=== PATIENT | female | born 1940 | race Caucasian/White ===

== ENCOUNTER 2018-04-23 15:20 | Inpatient (IN) | payer MEDICARE, MEDICAID ==
--- NOTE | 2018-04-23 15:48 | ED Physician Chart ---
ED Chief Complaint/HPI - Patient Information Date Seen:: 04/23/18 Time Seen:: 15:20 Chief Complaint:: Rectal Pain History of Present Illness:: onset x 2 days of rectal pain and myalgias; no report of trauma, H/As, S/T, neck pain, C/P, SOB, Abd. Pain, A/N/V/D/C, fever, chills, bleeding, or urinary s /s Allergies:: Allergies Allergy/AdvReac Type Severity Reaction Status Date / Time duloxetine HCl Allergy Verified 01/24/16 14:50 [From Cymbalta] Penicillins Allergy Verified 01/24/16 14:50 Vitals:: Vital Signs - 8 hr 04/23/18 15:23 Temp 98.8 F HR 78 RR 18 BP 144/77 O2 Sat % 94 Historian:: Patient, Family Member Review:: Nurse's Note Reviewed ED Review of Systems - Review of Systems General/Constitutional: No fever, No chills, No weight loss, No weakness, No diaphoresis, No edema, No loss of appetite Skin: No skin lesions, No rash, No bruising Head: No headache, No light-headedness Eyes: No loss of vision, No pain, No diplopia ENT: No earache, No nasal drainage, No sore throat, No tinnitus Neck: No neck pain, No swelling, No thyromegaly, No stiffness, No mass noted Cardio Vascular: No chest pain, No palpitations, No PND, No orthopnea, No edema Pulmonary: No SOB, No cough, No sputum, No wheezing GI: No nausea, No vomiting, No diarrhea, No pain, No melena, No hematochezia, No constipation, No hematemesis G/U: No dysuria, No frequency, No hematuria, No nacturia Protection Engineer: No vaginal discharge, No abnormal vaginal bleed, No contraction Musculoskeletal: No bone or joint pain, No back pain, No muscle pain Endocrine: No polyuria, No polydipsia Psychiatric: No prior psych history, No depression, No anxiety, No suicidal ideation, No homicidal ideation, No auditory hallucination, No visual hallucination Hematopoietic: No bruising, No lymphadenopathy Allergic/Immuno: No urticaria, No angioedema Neurological: No syncope, No focal symptoms, No weakness, No paresthesia, No headache, Seizure, No dizziness, Confusion, No vertigo ED Past Medical History - Past Medical History Obtainable: Yes Past Medical History: HTN, DM, CVA/TIA, Dyslipidemia, PUD/GERD, Seizures, Dementia Family History: Diabetes Melitus, HTN Social History: Non Smoker, No Alcohol, No Drug Use, , Care Facility Surgical History: Hysterectomy, other (Left BKA) Psychiatricy History: Schizophrenia, Bipolar, Dementia Medication: Reviewed Family Medical History - Family Member Mother History Unknown: Yes ED Physical Exam - Physical Examination General/Constitutional: Awake, Well-developed, well-nourished, Alert, No distress, GCS 15, Non-toxic appearing, Ambulatory Head: Atraumatic Eyes: Lids, conjuctiva normal, PERRL, EOMI Skin: Nl inspection, No rash, No skin lesions, No ecchymosis, Well hydrated, No lymphadenopathy ENMT: External ears, nose nl, TM canals nl, Nasal exam nl, Lips, teeth, gums nl , Oropharynx nl, Tonsils nl Neck: Nontender, Full ROM w/o pain, No JVD, No nuchal rigidity, No bruit, No mass, No stridor Respiratory: Nl effort/Exclusion, Clear to Auscultation, No Wheeze/Rhonchi/Rales Cardio Vascular: RRR, No murmur, gallop, rubs, NL S1 S2, Carotid/Femoral/Distal pulses equal bilaterally GI: No tenderness/rebounding/guarding, No organomegaly, No hernia, Normal BS's, Nondistended, No mass/bruits, No McBurney tenderness Other GI comments:: no pulsatile masses; + Hemorrhoids : No CVA tenderness Extremities: No tenderness or effusion, Full ROM, normal strength in all extremities, No edema, Normal digits & nails Neuro/Psych: Alert/oriented, DTR's symmetric, Normal sensory exam, Normal motor strength, Judgement/insight normal, Mood normal, Normal gait, No focal deficits Misc: Normal back, No paraspinal tenderness ED Labs/Radiology/EKG Results - Lab Results Comments:: Reviewed - EKG Interpretations EKG Time:: 17:09 Rate & Rhythm: 80; NSR Comments:: non-specific st-t changes ED Septic Shock - . Is Septic Shock (SBP<90, OR Lactate>4 mmol\L) present?: No - <6hrs of presentation: Vital Signs: Vital Signs - 8 hr /07/29 15:23 Temp 98.8 F HR 78 RR 18 BP 144/77 O2 Sat % 94 ED Reassessment (Disposition) - Reassessment Reassessment Condition:: Improved - Diagnosis Diagnosis:: Hemorrhoids; Rectal Pain; Hyperlipidemia; Intractable Pain - Aftercare/Follow up Instructions Aftercare/Follow-Up Instructions:: Counseled pt regarding lab results/diagnosis & need follow up, Counseled pt & family regarding lab results/diagnosis & need follow up - Patient Disposition Discharge/Transfer:: Acute Care w/in this hosp Accepting Physician:: Dr. Chawla Time Called:: 1700 Time Responded:: 17:00 Admitted to:: Med/Surg Spoke to:: Dr. Chawla Admitting Medical Physician:: Dr. Chawla Condition at Disposition:: Stable, Improved
[2018-04-23] MEDS ORDERED: Sodium Chloride 0.9% 1,000 ML IV ONE (15:49)
[2018-04-23 16:21] LABS: HEMATOCRIT 36.7 % (41.0-60); HEMOGLOBIN 12.2 gm/dL (12-16); MEAN CELL VOLUME 84.5 fl (81-100); MEAN CORPUSCULAR HEMOGLOBIN 28.1 pg (27.0-31.0); MEAN CORPUSCULAR HGB CONC 33.3 pg (28.0-36.0); RED BLOOD COUNT 4.34 Mil/cmm (3.80-5.20); RED CELL DISTRIBUTION WIDTH 13.2 % (11.5-20.0); WHITE BLOOD COUNT 5.8 Th/cmm (4.8-10.8)
[2018-04-23 16:22] LABS: % BASOPHILS 0.7 % (0.0-2.0); % EOSINOPHILS 3.1 % (0.0-5.0); % MONOCYTES 6.2 % (2.0-10.0); EOSINOPHILE ABSOLUTE 0.2 Th/cmm (0.1-0.4); LYMPHOCYTE ABSOLUTE 1.9 Th/cmm (1.5-3.0); MEAN PLATELET VOLUME 8.4 fl; MONOCYTE ABSOLUTE 0.4 Th/cmm (0.3-1.0); NEUTROPHILE ABSOLUTE 3.3 Th/cmm (1.8-8.0); PLATELET COUNT 208 Th/cmm (150-400)
[2018-04-23 16:34] LABS: INR 0.95 (0.5-1.4); PROTHROMBIN TIME (TEST) 9.9 SECONDS (9.5-11.5)
[2018-04-23 16:37] LABS: INR 0.95 (0.5-1.4); PROTHROMBIN TIME (TEST) 9.9 SECONDS (9.5-11.5)
[2018-04-23 16:59] LABS: DDIMER QUANT 196 ng/mL (100-400)
[2018-04-23 17:03] LABS: ALB/GLOB RATIO 1.4 (1.0-1.8); ALBUMIN 3.6 gm/dL (3.7-5.3); ALKALINE PHOSPHATASE 54 U/L (34-104); ANION GAP 11.3 (7.0-16.0); BILIRUBIN,TOTAL 0.4 mg/dL (0.3-1.0); BUN - UREA NITROGEN 12 mg/dL (7-25); CALCIUM SERUM 9.3 mg/dL (8.6-10.3); CARBON DIOXIDE 26.8 mEq/L (21.0-31.0); CHLORIDE 104 mEq/L (98-107); CHOLESTEROL 122 mg/dL (<200); CREATININE - SERUM 0.5 mg/dL (0.6-1.2); CREATININE KINASE 19 U/L (30-223); GLUCOSE 112 mg/dL (70-105); HDL -HIGH DENSITY LIPOPROTEIN 32 mg/dL (23-92); POTASSIUM SERUM 4.1 mEq/L (3.5-5.1); SGOT 10 U/L (13-39); SGPT/ALT 9 U/L (7-52); SODIUM SERUM 138 mEq/L (136-145); TOTAL PROTEIN,SERUM 6.1 gm/dL (6.0-8.3); TRIGLYCERIDES 247 mg/dL (<150)
[2018-04-23 17:04] LABS: AMYLASE SERUM 35 U/L (29-103); LIPASE 26 U/L (11-82)
[2018-04-23 17:27] LABS: URINE SOURCE CLEAN C
[2018-04-23 17:31] LABS: URINE BILIRUBIN NEGATIVE (NEGATIVE); URINE BLOOD NEGATIVE (NEGATIVE); URINE GLUCOSE (UA) NEGATIVE (NEGATIVE); URINE KETONE NEGATIVE (NEGATIVE); URINE LEUKOCYTE ESTERASE NEGATIVE (NEGATIVE); URINE NITRATE NEGATIVE (NEGATIVE); URINE PROTEIN NEGATIVE (NEGATIVE); URINE UROBILINOGEN 0.2 E.U./dL (0.2 - 1.0)
[2018-04-23 17:34] LABS: URINE CLARITY CLEAR (CLEAR); URINE COLOR YELLOW; URINE MICROSCOPIC INDICATED? YES
[2018-04-23 17:36] LABS: URINE BACTERIA FEW /hpf (NONE SEEN); URINE EPITHELIAL CELLS FEW /lpf (FEW); URINE RBC 0-2 /hpf (0-5)
[2018-04-23] MEDS ORDERED: Morphine Sulfate 2 mg/mL 1mL Syr IV STA (17:58)
[2018-04-23] MEDS ORDERED: Morphine Sulfate 2 mg/mL 1mL Syr ONE (19:52)
[2018-04-23] MEDS ORDERED: Ipratropium Neb 0.5 mg/2.5 mL UD HHN PRN (22:09)
[2018-04-23] MEDS ORDERED: Albuterol Nebulizer 2.5mg/3mL HHN PRN (22:09)
[2018-04-23] MEDS: D5-0.45NS 1,000 ML IV SCH (22:36)
[2018-04-24] MEDS: Hydrocodone/APAP 5mg/325mg Tab PO PRN ×2 (00:45→21:21)
[2018-04-24] MEDS ORDERED: Pneumococcal Vaccine 0.5 mL Vial IM ONE (01:53)
[2018-04-24] MEDS: Morphine Sulfate 2 mg/mL 1mL Syr IVP PRN ×2 (03:17→10:11)
[2018-04-24] MEDS ORDERED: Diatrizoate Meglumine/Diatri 30 mL Sol PO ONE (08:06)
[2018-04-24] MEDS ORDERED: IOHEXOL 300mgI/mL 100 ML VIAL IVP ONE (08:06)
[2018-04-24] MEDS ORDERED: Carbamide Peroxide Otic Soln 15 mL Bottle EACH EAR SCH (09:00)
[2018-04-24] MEDS: Aspirin 81mg Chewable Tab PO SCH (09:16)
[2018-04-24] MEDS: Calcium Carb/Vit D 500 mg/200 U Tab PO SCH ×3 (09:16→21:17)
[2018-04-24] MEDS: NIFEdipine 30 mg ER Tab PO SCH (09:17)
[2018-04-24] MEDS: POLYETHYLENE GLYCOL 3350 17 GM PACK PO SCH (09:22)
[2018-04-24] MEDS: Multivitamin Tab PO SCH (09:22)
--- NOTE | 2018-04-24 09:51 | Consultation ---
DATE OF CONSULTATION: 04/24/2018 INPATIENT GASTROINTESTINAL CONSULTATION REFERRING PHYSICIAN: Dr. Chawla. REASON FOR CONSULTATION: Rectal pain. HISTORY OF PRESENT ILLNESS: This is a 77-year-old female complaining of rectal pain for 2 days. The patient denies having any frontal abdominal pain. She feels constipated. No diarrhea, no melena, hematochezia. No nausea or vomiting. PAST MEDICAL HISTORY: Hypertension, diabetes, stroke, hyperlipidemia, peptic ulcer disease, seizure disorder, and dementia. PAST SURGICAL HISTORY: Hysterectomy and left BKA. FAMILY HISTORY: Noncontributory. SOCIAL HISTORY: No tobacco, alcohol, or IV drug usage. ALLERGIES: DULOXETINE and PENICILLIN. CURRENT MEDICATIONS: Tylenol, [place], Fosamax, aspirin, Lipitor, [place], Coreg, Celexa, Plavix, Colace, Aricept, Neurontin, hydrochlorothiazide, Anusol, hydrocortisone, lactulose, Keppra, Namenda, morphine, Procardia, Nitrostat, Zofran, Protonix, and MiraLax. REVIEW OF SYSTEMS: Ten point review of systems obtained, pertinent positive was the rectal pain. All other systems are negative. PHYSICAL EXAMINATION: VITAL SIGNS: Temperature 98.6, breathing 19, pulse of 80, blood pressure 127/45, and satting 94%. GENERAL: In no apparent distress. EYES: Anicteric. Normal conjunctivae. HEENT: Normocephalic, atraumatic. Moist mucous membranes. NECK: Soft, supple. CHEST: Clear. No effort. CARDIOVASCULAR: Regular rate and rhythm. ABDOMEN: Soft, nontender, nondistended. SKIN: Warm and dry. EXTREMITIES: No cyanosis. RECTAL: Revealed a tender internal hemorrhoids. SKIN: Warm and dry. EXTREMITIES: No cyanosis. PSYCHOLOGICAL: Awake. LABORATORY DATA: Show white count 5.8, hemoglobin 12.2, and platelets of 208. INR 0.94. LFTs within normal limits. IMPRESSION: A 77-year-old female with rectal pain, likely from hemorrhoids and currently has Anusol and hydrocortisone on board, may need surgical evaluation. Colonoscopy is also to be considered. However, the patient is on Plavix and we will have to hold this for 7 days. Imaging studies of the lower region of the pelvis could also be helpful. PLAN: 1. CT pelvis. 2. Continue with laxatives, Anusol, hydrocortisone. 3. Consider Amitiza for opioid induced constipation. 4. Surgical evaluation for cystic hemorrhoids. 5. Consider colonoscopy, but the patient to be off Plavix for 7 days. Thank you for allowing me to participate. Please call me if any questions. JOB# [id number]
--- NOTE | 2018-04-24 13:04 | Diagnostic Imaging Report ---
CT scan abdomen and pelvis with and without intravenous contrast HISTORY: Rectal pain Total DLP equals 1626 CTDI equals 31.0 Axial sections were obtained from the xiphoid process down to the pubic symphysis before and after administration of intravenous contrast. Exam somewhat compromised due to patient motion. The liver exhibits a homogeneous parenchyma. No focal lesions. The spleen appears normal. No abnormality seen in the region of the pancreas. No significant focal renal lesions. No hydronephrosis. Atherosclerotic calcination noted throughout the aorta and iliac artery regions. The exam of the pelvis demonstrates preservation of normal fat planes. No abnormal soft tissue masses or abnormal fluid collections. Colonic diverticula are noted particularly in the sigmoid region. No abnormality seen within the region of the rectum. IMPRESSION: 1. No acute abnormalities 2. Atherosclerotic vascular changes 3. Diverticulosis
--- NOTE | 2018-04-24 14:59 | History & Physical ---
ADMIT DATE: 04/24/2018 PATIENT IDENTIFICATION: A 77-year-old female. CHIEF COMPLAINT: Abdominal pain and perirectal pain. HISTORY OF PRESENT ILLNESS: This 77-year-old resident of senior living, has a significant medical history, which includes cerebrovascular accident with left-sided weakness, hypertension, hyperlipidemia, seizure disorder, obesity, has been followed by myself at a senior living, brought in to the Emergency Room after the patient was complaining about significant amount of pain in the lower abdominal area as well as the perirectal area. The patient was evaluated in the Emergency Room and has been admitted to the hospital for further treatment. PAST MEDICAL HISTORY: Remarkable for: 1. Hypertension. 2. Hyperlipidemia. 3. Cerebrovascular accident with left-sided weakness. 4. Degenerative joint disease. 5. Seizure disorder. 6. Left below knee amputation. MEDICATIONS AT HOME: The patient is taking multiple medications, which include Tylenol, Fosamax, vitamin C, aspirin, atorvastatin, carvedilol, vitamin D, Plavix, Celexa, Colace, gabapentin, Aricept, hydrochlorothiazide, hydrocortisone cream, Imdur, lactulose, Keppra, Namenda, nifedipine, and nitroglycerin. ALLERGIES: The patient is allergic to DULOXETINE AND PENICILLIN. SOCIAL HISTORY: The patient is a resident of senior living. No history of smoking cigarette, alcohol, or drug use. FAMILY MEDICAL HISTORY: Unremarkable. REVIEW OF SYSTEMS: The patient currently denies any headache, blurred vision. Denies any chest pain, shortness of breath. Denies any fever or chills. The patient complained of constipation earlier, but it is better after getting anti-constipation medication. The patient denies any seizure or syncopal episode. Denies any suicidal or homicidal ideation. PHYSICAL EXAMINATION: GENERAL: Alert, awake, lying in the bed. VITAL SIGNS: Temperature 98.2, pulse 75, respiratory rate 18, blood pressure 130/52. HEENT: Normocephalic, atraumatic. Extraocular muscles are intact. Tongue more pink and coated. Poor dentition noted. NECK: Supple, no JVD, no lymphadenopathy, thyromegaly. HEART: Both heart sounds are regular. CHEST AND LUNGS: Equal in expansion, no expiratory wheezing. ABDOMEN: Soft. No guarding or rigidity. Bowel sounds present. No palpable mass. Diffuse tenderness noted of the lower part of the abdomen. EXTREMITIES: Left below knee amputation noted. RECTAL: Perirectal examination remarkable for hemorrhoids noted. NEUROLOGIC: Remarkable for left-sided weakness noted. AVAILABLE DIAGNOSTIC DATA: White count of 5.8, hemoglobin 12.2, platelet count of 208. PT, PTT are normal. BUN and creatinine is 12 and 0.5, glucose of 112. B-type natriuretic 114, CK of 19, triglyceride 247, LDL of 66. Urinalysis unremarkable. CT scan of the abdomen and pelvis is done, which reveals the patient has atherosclerotic vascular changes with diverticulosis. CLINICAL IMPRESSION: 1. Diffuse abdominal pain, etiology needs to determine. In the presence of atherosclerotic changes and diverticulosis, intestinal ischemia and diverticulosis from early diverticulitis is always a possibility. 2. Perirectal pain, most likely secondary to hemorrhoidal in etiology. 3. Fecal impaction. 4. Cerebrovascular accident with left-sided weakness. 5. Seizure disorder. 6. Hypertension. 7. Hyperlipidemia. 8. Peripheral vascular disease. 9. Status post left below knee amputation. 10. Psychotic disorder. 11. Dementia. PLAN: The patient is admitted at this time to Med/Surg floor. The patient will have GI consultation. I will also put the patient on appropriate medication, anti-constipation medicine will be given. Pain management provided. Empirical IV antibiotic, general nursing care, and follow gastroenterology recommendations. The patient's care plan has been reviewed and discussed with RN as well. JOB# [id number]
[2018-04-24] MEDS: Atorvastatin Calcium 10 MG TAB PO SCH (21:16)
[2018-04-24] MEDS: Lactulose 10 Gm/15 mL 30mL UDC PO SCH (21:24)
[2018-04-25] MEDS: Hydrocodone/APAP 5mg/325mg Tab PO PRN ×2 (05:27→22:10)
--- NOTE | 2018-04-25 08:39 | GI Progress Note ---
Subjective - Review of Systems Subjective: HAD LARGE BM Objective - Results Result Diagrams: 04/23/18 16:10 04/23/18 16:10 Recent Labs: Laboratory Last Values WBC 5.8 Th/cmm (4.8-10.8) 04/23/18 16:10 RBC 4.34 Mil/cmm (3.80-5.20) 04/23/18 16:10 Hgb 12.2 gm/dL (12-16) 04/23/18 16:10 Hct 36.7 % (41.0-60) L 04/23/18 16:10 MCV 84.5 fl (81-100) 04/23/18 16:10 MCH 28.1 pg (27.0-31.0) 04/23/18 16:10 MCHC Differential 33.3 pg (28.0-36.0) 04/23/18 16:10 RDW 13.2 % (11.5-20.0) 04/23/18 16:10 Plt Count 208 Th/cmm (150-400) 04/23/18 16:10 MPV 8.4 fl 04/23/18 16:10 Neutrophils % 58.0 % (40.0-80.0) 04/23/18 16:10 Lymphocytes % 32.0 % (20.0-50.0) 04/23/18 16:10 Monocytes % 6.2 % (2.0-10.0) 04/23/18 16:10 Eosinophils % 3.1 % (0.0-5.0) 04/23/18 16:10 Basophils % 0.7 % (0.0-2.0) 04/23/18 16:10 PT 9.9 SECONDS (9.5-11.5) 04/23/18 16:10 INR 0.95 (0.5-1.4) 04/23/18 16:10 PTT (Actin FS) 24.0 SECONDS (26.0-38.0) L 04/23/18 16:10 D-Dimer 196 ng/mL (100-400) 04/23/18 16:10 Sodium 138 mEq/L (136-145) 04/23/18 16:10 Potassium 4.1 mEq/L (3.5-5.1) 04/23/18 16:10 Chloride 104 mEq/L (98-107) 04/23/18 16:10 Carbon Dioxide 26.8 mEq/L (21.0-31.0) 04/23/18 16:10 Anion Gap 11.3 (7.0-16.0) 04/23/18 16:10 BUN 12 mg/dL (7-25) 04/23/18 16:10 Creatinine 0.5 mg/dL (0.6-1.2) L 04/23/18 16:10 Est GFR ( Amer) TNP 04/23/18 16:10 Est GFR (Non-Af Amer) TNP 04/23/18 16:10 BUN/Creatinine Ratio 24.0 04/23/18 16:10 Glucose 112 mg/dL (70-105) H 04/23/18 16:10 Whole Bld Lactic Acid 0.93 mmol/L (0.60-1.99) 04/23/18 16:10 Calcium 9.3 mg/dL (8.6-10.3) 04/23/18 16:10 Total Bilirubin 0.4 mg/dL (0.3-1.0) 04/23/18 16:10 AST 10 U/L (13-39) L 04/23/18 16:10 ALT 9 U/L (7-52) 04/23/18 16:10 Alkaline Phosphatase 54 U/L (34-104) 04/23/18 16:10 Creatine Kinase 19 U/L (30-223) L 04/23/18 16:10 Troponin I 0.01 ng/mL (0.01-0.05) 04/23/18 16:10 B-Natriuretic Peptide 114.0 pg/mL (5.0-100.0) H 04/23/18 16:10 Total Protein 6.1 gm/dL (6.0-8.3) 04/23/18 16:10 Albumin 3.6 gm/dL (3.7-5.3) L 04/23/18 16:10 Globulin 2.5 gm/dL 04/23/18 16:10 Albumin/Globulin Ratio 1.4 (1.0-1.8) 04/23/18 16:10 Triglycerides 247 mg/dL (<150) H 04/23/18 16:10 Cholesterol 122 mg/dL (<200) 04/23/18 16:10 LDL Cholesterol Direct 66 mg/dL (75-193) L 04/23/18 16:10 HDL Cholesterol 32 mg/dL (23-92) 04/23/18 16:10 Amylase 35 U/L (29-103) 04/23/18 16:10 Lipase 26 U/L (11-82) 04/23/18 16:10 Urine Source CLEAN C 04/23/18 17:00 Urine Color YELLOW 04/23/18 17:00 Urine Clarity CLEAR (CLEAR) 04/23/18 17:00 Urine pH 6.0 (4.6 - 8.0) 04/23/18 17:00 Ur Specific [place] 1.025 (1.005-1.030) 04/23/18 17:00 Urine Protein NEGATIVE mg/dL (NEGATIVE) 04/23/18 17:00 Urine Glucose (UA) NEGATIVE mg/dL (NEGATIVE) 04/23/18 17:00 Urine Ketones NEGATIVE mg/dL (NEGATIVE) 04/23/18 17:00 Urine Blood NEGATIVE (NEGATIVE) 04/23/18 17:00 Urine Nitrate NEGATIVE (NEGATIVE) 04/23/18 17:00 Urine Bilirubin NEGATIVE (NEGATIVE) 04/23/18 17:00 Urine Urobilinogen 0.2 E.U./dL (0.2 - 1.0) 04/23/18 17:00 Ur Leukocyte Esterase NEGATIVE (NEGATIVE) 04/23/18 17:00 Urine RBC 0-2 /hpf (0-5) 04/23/18 17:00 Urine WBC 2-5 /hpf (0-5) 04/23/18 17:00 Ur Epithelial Cells FEW /lpf (FEW) 04/23/18 17:00 Urine Bacteria FEW /hpf (NONE SEEN) 04/23/18 17:00 - Physical Exam Vitals and I&O: Vital Signs Temp 98 F 04/25/18 04:00 Pulse 79 04/25/18 07:16 Resp 18 04/25/18 07:16 BP 112/48 04/25/18 04:00 Pulse Ox 94 04/25/18 07:16 Intake & Output 04/24/18 04/25/18 04/25/18 18:59 06:59 18:59 Intake Total 1454.667 Output Total 2 Balance 1454.667 -2 Weight (lbs) 72.121 kg 72.121 kg Intake: Intake, IV Amount 734.667 D5-0.45NS 1,000 ml @ 80 734.667 mls/hr IV .[id number] [facility] Rx #:[id number] Oral 720 Output: Stool 2 Other: # Voids 4 3 # Bowel Movements 5 Stool Characteristics Formed Soft Hard Liquid Brown Brown Weight Source Bedscale Bedscale Active Medications: Current Medications Acetaminophen (Tylenol) 650 mg PO Q4HR PRN PRN Reason: Pain (Mild) Stop: 06/22/18 22:05 Acetaminophen/Hydrocodone Bitart ([place] 5mg/325mg) 1 tab PO Q4H PRN PRN Reason: Pain (Moderate) Stop: 06/22/18 22:05 Last Admin: 04/25/18 05:27 Dose: 1 tab Albuterol Sulfate (Albuterol 2.5mg/3ml Neb Ud) 2.5 mg HHN Q2HRT PRN PRN Reason: Shortness of Breath or Wheeze Stop: 06/22/18 22:08 Ascorbic Acid (Vitamin C) 500 mg PO DAILY [facility] Stop: 06/23/18 08:59 Last Admin: 04/24/18 09:16 Dose: 500 mg Aspirin (Aspirin Chewable) 81 mg PO DAILY [facility] Stop: 06/23/18 08:59 Last Admin: 04/24/18 09:16 Dose: 81 mg Atorvastatin Calcium (Lipitor) 10 mg PO HS [facility] Stop: 06/23/18 20:59 Last Admin: 04/24/18 21:16 Dose: 10 mg Calcium/Vitamin D (Oscal W/Vitamin D) 1 tab PO TID [facility] Stop: 06/23/18 08:59 Last Admin: 04/24/18 21:17 Dose: 1 tab Carvedilol (Coreg) 6.25 mg PO BID [facility] Stop: 06/23/18 08:59 Last Admin: 04/24/18 16:26 Dose: 6.25 mg Cholecalciferol (Vitamin D3) 1,000 iu PO DAILY [facility] Stop: 06/23/18 08:59 Last Admin: 04/24/18 09:16 Dose: 1,000 iu Citalopram Hydrobromide (Celexa) 20 mg PO DAILY [facility]; Protocol Stop: 06/23/18 08:59 Last Admin: 04/24/18 09:15 Dose: 20 mg Clopidogrel Bisulfate (Plavix) 75 mg PO DAILY [facility] Stop: 06/23/18 08:59 Last Admin: 04/24/18 09:15 Dose: 75 mg Docusate Sodium (Colace) 100 mg PO BID [facility] Stop: 06/23/18 08:59 Last Admin: 04/24/18 16:27 Dose: 100 mg Donepezil HCl (Aricept) 10 mg PO HS [facility] Stop: 06/23/18 20:59 Last Admin: 04/24/18 21:16 Dose: 10 mg Gabapentin (Neurontin) 100 mg PO TID [facility] Stop: 06/23/18 08:59 Last Admin: 04/24/18 21:17 Dose: 100 mg Hydrochlorothiazide (Hctz) 12.5 mg PO DAILY [facility] Stop: 06/23/18 08:59 Last Admin: 04/24/18 09:17 Dose: 12.5 mg Hydrocortisone (Anusol-Hc) 25 mg RC DAILY PRN PRN Reason: RECTAL BLEEDING Stop: 06/22/18 22:05 Dextrose/Sodium Chloride (D5-0.45ns) 1,000 mls @ 80 mls/hr IV .[id number] [facility] Stop: 06/22/18 22:14 Last Infusion: 04/24/18 07:47 Dose: 80 mls/hr Ipratropium [place] (Atrovent Neb 0.5mg/2.5ml) 0.5 mg HHN Q2HRT PRN PRN Reason: Shortness of Breath or Wheeze Stop: 06/22/18 22:08 Isosorbide Dinitrate (Isordil) 10 mg PO TID [facility] Stop: 06/23/18 08:59 Last Admin: 04/24/18 21:17 Dose: 10 mg Lactulose (Cephulac) 20 gm PO HS [facility] Stop: 06/23/18 20:59 Last Admin: 04/24/18 21:24 Dose: Not Given Levetiracetam (Keppra) 500 mg PO BID [facility] Stop: 06/23/18 08:59 Last Admin: 04/24/18 16:27 Dose: 500 mg Memantine (Namenda) 10 mg PO BID [facility] Stop: 06/23/18 08:59 Last Admin: 04/24/18 16:26 Dose: 10 mg Morphine Sulfate (Morphine) 2 mg IVP Q4H PRN PRN Reason: Pain (Severe) Stop: 06/22/18 22:08 Last Admin: 04/24/18 10:11 Dose: 2 mg Multivitamins/Vitamin C (Theragran) 1 tab PO DAILY [facility] Stop: 06/23/18 08:59 Last Admin: 04/24/18 09:22 Dose: 1 tab Nifedipine (Procardia Xl) 60 mg PO DAILY [facility] Stop: 06/23/18 08:59 Last Admin: 04/24/18 09:17 Dose: 60 mg Nitroglycerin (Nitrostat) 0.4 mg SL Q5MIN PRN PRN Reason: Chest Pain Stop: 06/22/18 22:05 Ondansetron HCl (Zofran) 4 mg IV Q8H PRN PRN Reason: Nausea / Vomiting Stop: 06/22/18 22:08 Pantoprazole Sodium (Protonix) 40 mg IVP BID [facility] Stop: 06/23/18 08:59 Last Admin: 04/24/18 16:26 Dose: 40 mg Polyethylene Glycol (Miralax) 17 gm PO DAILY [facility] Stop: 06/23/18 08:59 Last Admin: 04/24/18 09:22 Dose: 17 gm - Procedures Procedures: Procedures Procedure Code Date INDIVID PSYCHOTHERAP NEC 94.39 03/27/05 INSERT PICC CATH 98996 09/17/05 OTHER GROUP THERAPY 94.44 08/30/10 RECREATIONAL THERAPY 93.81 03/27/05 VENOUS CATHETERIZATION NEC 38.93 09/17/05 Assessment/Plan - Assessment Assessment: 77 YO FEMALE WITH RECTAL PAIN LIKELY FROM HEMORRHOIDS CT SHOWED DIVERTICULOSIS 1.CONT ANUSOL 2.SURGERY INPUT 3.CONSIDER COLO INPATIENT VS OUTPATIENT BUT WOULD NEED TO HOLD PLAVIX FOR 7 DAYS
[2018-04-25] MEDS: POLYETHYLENE GLYCOL 3350 17 GM PACK PO SCH (08:53)
[2018-04-25] MEDS: Multivitamin Tab PO SCH (08:54)
[2018-04-25] MEDS: NIFEdipine 30 mg ER Tab PO SCH ×2 (08:54→09:11)
[2018-04-25] MEDS: Calcium Carb/Vit D 500 mg/200 U Tab PO SCH ×4 (08:55→22:02)
[2018-04-25] MEDS: Aspirin 81mg Chewable Tab PO SCH ×2 (08:55→09:10)
--- NOTE | 2018-04-25 10:25 | Consultation ---
DATE OF CONSULTATION: 04/25/2018 SURGICAL CONSULT REFERRING PHYSICIAN: Dr. Bernabe. REASON FOR CONSULTATION: Rectal bleeding. Thank you for referring this patient to me. This is a 77-year-old female who was admitted because of 2-day history of rectal pain apparently associated with some bleeding, although this is questionable. The patient has past medical history of hypertension, diabetes, stroke, hyperlipidemia, peptic ulcer disease, seizure disorder, dementia. Past surgical history includes hysterectomy and left below knee amputation. On this admission, the laboratory studies showed CBC to be normal. Chemistry also essentially normal. Triglycerides elevated to 247 with LDL low at 66. She underwent CT scan of the abdomen and this showed no abnormalities except for diverticulosis. The patient has undergone GI evaluation by Dr. Alba and this is in progress. PHYSICAL EXAMINATION: GENERAL: The patient is awake, but poorly oriented. She is bedbound essentially with obesity. ABDOMEN: Scars in the abdomen from surgery is noted, but no abdominal pain is elicited. Turning on her side, there is external hemorrhoid which is with no incarceration, but on rectal examination, no tenderness is elicited and no mass is palpated. Apparently since admission, she has a good bowel movement. RECOMMENDATIONS: GI evaluation is in progress. No obvious surgical problem is present at this point. [facility]# [id number]
[2018-04-25] MEDS: D5-0.45NS 1,000 ML IV SCH ×2 (14:43→22:04)
[2018-04-25] MEDS: Lactulose 10 Gm/15 mL 30mL UDC PO SCH (21:53)
[2018-04-25] MEDS: Atorvastatin Calcium 10 MG TAB PO SCH (22:02)
[2018-04-25] MEDS: Morphine Sulfate 2 mg/mL 1mL Syr IVP PRN (22:02)
[2018-04-26] MEDS: POLYETHYLENE GLYCOL 3350 17 GM PACK PO SCH (09:12)
[2018-04-26] MEDS: Aspirin 81mg Chewable Tab PO SCH (09:13)
[2018-04-26] MEDS: NIFEdipine 30 mg ER Tab PO SCH (09:13)
[2018-04-26] MEDS: Calcium Carb/Vit D 500 mg/200 U Tab PO SCH ×2 (09:14→13:51)
[2018-04-26] MEDS: Multivitamin Tab PO SCH (09:15)
--- NOTE | 2018-04-26 09:30 | Diagnostic Imaging Report ---
KUB abdominal film HISTORY: Pain, fecal impaction The exam demonstrates an air-filled stomach. Residual contrast noted throughout nondilated large bowel associated with numerous diverticula. Bowel gas pattern otherwise nonspecific. No free intraperitoneal air. IMPRESSION: 1. Air-filled stomach with an otherwise nonspecific bowel gas pattern 2. Residual radiopaque contrast within nondilated large bowel associated with numerous diverticula consistent with diverticulosis.
--- NOTE | 2018-04-26 12:35 | Progress Notes ---
DATE: 04/25/2018 THE PATIENT'S ID: A 77-year-old female. SUBJECTIVE: The patient seen and examined. The patient is lying in the bed. The patient had pain earlier today. The patient denies any chest pain or shortness of breath. Discussed with hogshead hand as well as surgeon about the future treatment plan. The patient will require colonoscopy at one point. The patient does have fecal impaction. The patient did have bowel movement as well. The patient currently sleeping comfortably, but easy to awake. Her kidney functions are normal. PHYSICAL EXAMINATION: VITAL SIGNS: Temperature 97.2, pulse is 74, respiratory rate 18, blood pressure 121/47. HEENT: No facial asymmetry. NECK: Supple, no JVD. HEART: Regular. CHEST AND LUNGS: Equal in expansion, no expiratory wheezing. ABDOMEN: Distended, soft. Bowel sounds are present. No palpable mass. EXTREMITIES: Left below knee amputation noted. Peripheral pulses are +1. AVAILABLE DIAGNOSTIC DATA: None from my review. CLINICAL IMPRESSION: 1. Perirectal pain. 2. Abdominal pain. 3. Hypertension. 4. Cerebrovascular accident. 5. Dementia. 6. Degenerative joint disease. 7. Peripheral vascular disease. 8. Psychotic disorder. PLAN: 1. Empirical antibiotic. 2. KUB. 3. Colonoscopy to be done as an outpatient. 4. General nursing care. 5. Follow lab. 6. Follow consult recommendation. 7. Care plan reviewed and discussed with staff. JOB# [id number]
[2018-04-26] MEDS ORDERED: Lactulose 10 Gm/15 mL 30mL UDC PO SCH (17:00)
--- NOTE | 2018-04-27 18:50 | Progress Notes ---
DATE: IDENTIFICATION: A 77-year-old female. SUBJECTIVE: The patient seen and examined. The patient refused blood test. The patient has been seen by food consultant and the patient remained hemodynamically stable. The patient continues to complain that she feels wet, discussed with nursing staff. There was no evidence of urine or stool noted. PHYSICAL EXAMINATION: VITAL SIGNS: Temperature 98, pulse is 78, respiratory rate is 18, blood pressure 130/60. HEENT: No facial asymmetry. NECK: Supple, no JVD. HEART: Regular. CHEST AND LUNGS: Equal in expansion, no expiratory wheezing. ABDOMEN: Soft. No guarding. No rigidity. Bowel sounds present. No palpable mass. EXTREMITIES: Left below-knee amputation noted. DIAGNOSTIC DATA: Available diagnostic data: which revealed diverticulosis. CLINICAL IMPRESSION: 1. Perirectal pain. 2. Diverticulosis. 3. Hypertension. 4. Cerebrovascular accident. 5. Dementia. 6. Degenerative joint disease. 7. Hyperlipidemia. PLAN: The patient is to have outpatient colonoscopy in the view of her Plavix use as recommended by tire duster. The patient does look hemodynamically stable. We will adjust anti-constipation medications and we will try to discharge back this patient to facility. JOB# [id number]
--- NOTE | 2018-04-30 17:43 | Discharge Summary ---
DATE OF DISCHARGE: 04/26/2018 PRINCIPAL DIAGNOSES: 1. Perirectal pain secondary to hemorrhoids. 2. Abdominal pain, probably secondary to fecal impaction. 3. Diverticulosis. 4. Hypertension. 5. Cerebrovascular accident. 6. Dementia. 7. Degenerative joint disease. 8. Peripheral vascular disease. 9. Hyperlipidemia. 10. Status post left below knee amputation. BRIEF STATEMENT FOR THE REASON FOR ADMISSION: A 77-year-old resident of long term sent to Emergency Room for abdominal pain and perirectal pain. The patient was advised to be admitted after being worked up in the Emergency Room. Please refer to my H and P for further information. HOSPITAL COURSE: The patient was admitted to [facility]. The patient was seen by senior firmware engineer as well as general surgeon. The patient was noted to have fecal impaction, which was also improved with anti-constipation medication. Empirical antibiotic was also given to the patient as well. The patient did have a KUB for followup and noted that the patient did have evidence of diverticulosis. The patient was on Plavix and it was recommended by Gastroenterology that the patient should have a colonoscopy done as an outpatient after off of Plavix for at least 5-7 days. The patient's pain was managed with prescription medication and the patient was able to take p.o. well. Decision was made that the patient should be discharged to long term. The patient's family requested the patient to be transferred to the local area of long term and the patient was accepted to [facility]. The patient was transferred to [facility] 04/30/2018. The patient will be followed by myself and my nurse practitioner. At the time of discharge, all of her meds were reconciled. JOB# [id number]
== END 2018-04-26 19:55 | DRG 394 ==
LOC: ER 15:20 → MSI 20:00
PROVIDERS: ADMIT Internal Medicine; ATTEND Internal Medicine
DX: K64.4 Residual hemorrhoidal skin tags (principal); I69.954 Hemiplegia and hemiparesis following unspecified cerebrovascular disease affecting left non-dominant side; K62.89 Other specified diseases of anus and rectum; K56.41 Fecal impaction; F03.90 Unspecified dementia, unspecified severity, without behavioral disturbance, psychotic disturbance, mood disturbance, and anxiety; Z66 Do not resuscitate; I10 Essential (primary) hypertension; E11.51 Type 2 diabetes mellitus with diabetic peripheral angiopathy without gangrene; E78.5 Hyperlipidemia, unspecified; K21.9 Gastro-esophageal reflux disease without esophagitis; K27.9 Peptic ulcer, site unspecified, unspecified as acute or chronic, without hemorrhage or perforation; G40.909 Epilepsy, unspecified, not intractable, without status epilepticus; E66.9 Obesity, unspecified; M19.90 Unspecified osteoarthritis, unspecified site; F29 Unspecified psychosis not due to a substance or known physiological condition; K57.30 Diverticulosis of large intestine without perforation or abscess without bleeding; Z88.0 Allergy status to penicillin; Z83.3 Family history of diabetes mellitus; Z82.49 Family history of ischemic heart disease and other diseases of the circulatory system; Z68.31 Body mass index [BMI] 31.0-31.9, adult; Z89.512 Acquired absence of left leg below knee; Z90.710 Acquired absence of both cervix and uterus; Z88.8 Allergy status to other drugs, medicaments and biological substances
CPT/HCPCS: 36415-UA; 74000-TC; 80053-TC; 80061-TC; 81001-TC; 82150-TC; 82550-TC; 83605; 83690-TC; 83880-TC; 84484-TC; 85025-TC; 85379-TC; 85610-TC; 85730-TC; 93005; 94760; 96374; C9113; J2270; Q9967; Z7610

== ENCOUNTER 2018-10-07 11:12 | Outpatient (CLI) | payer MEDICARE, MEDICAID ==
[2018-10-07] MEDS ORDERED: Diatrizoate Meglumine/Diatri 30 mL Sol PO ONE (11:13)
--- NOTE | 2018-10-07 12:23 | Diagnostic Imaging Report ---
CT abdomen and pelvis without intravenous contrast Indication: Abdominal pain, rule out colitis Comparison: CT abdomen and pelvis on 04/24/2018, Technique: Axial images were obtained from the lung bases to the bilateral proximal femurs without IV contrast. Oral contrast was administered. Coronal reconstructions were made. total DLP: 843, CTDI16.1 FINDINGS: Hypoventilatory and atelectatic changes of the lung bases are noted. Evaluation of the solid organs is limited due to lack of IV contrast. Exam is also limited due to motion. No evidence of focal hepatic, splenic, lesions. There are calcifications along the head of the pancreas or distal common bile duct also seen on prior exam. The Largest measures 5 mm. No focal adrenal lesions. Bilateral renal calcifications are noted likely vascular. Nonspecific bilateral perinephric inflammatory changes are noted. A shunt status post hysterectomy. Diverticulosis is noted without diverticulitis. No focal bowel wall thickening identified. No appendicitis. No free fluid or free air. Diffuse atherosclerosis is noted with there is ectasia of the infrarenal abdominal aorta measuring up to 2.5 cm. Degenerative changes of the spine and pelvis are noted. Osteopenia is noted. IMPRESSION: No evidence of bowel obstruction. No significant bowel wall thickening to suggest colitis. Diverticulosis without evidence of diverticulitis. Small calcifications which may be within the distal common bile duct or possibly represent pancreatic calcifications. If indicated MRCP follow-up would provide additional detail and assessment. No evidence of hydronephrosis. Heavy atherosclerosis. Evidence of prior cholecystectomy and hysterectomy..
== END 2018-10-07 12:19 | disposition home or self-care (01) ==
LOC: RAD 11:12
DX: I77.811 Abdominal aortic ectasia (principal); N28.89 Other specified disorders of kidney and ureter; K57.90 Diverticulosis of intestine, part unspecified, without perforation or abscess without bleeding; M85.88 Other specified disorders of bone density and structure, other site; I70.90 Unspecified atherosclerosis; Z90.49 Acquired absence of other specified parts of digestive tract; Z90.710 Acquired absence of both cervix and uterus